=== PATIENT | male | born 1950 | race Caucasian/White ===

== ENCOUNTER 2021-01-18 12:41 | Inpatient (IN) | payer MEDICARE ==
[2021-01-18] VITALS (14 sets, daily range): BP systolic 132–155; BP diastolic 63–104; PULSE 78–99; TEMP 98.1–98.4
[~2021-01-18] VITALS: Ht 172.7 cm; Wt 84.2 kg
[2021-01-18] MEDS ORDERED: TOPROL XL 50MG50 MG PO (13:12)
[2021-01-18] MEDS ORDERED: NORVASC 5MG5 MG/TAB PO (13:12)
[2021-01-18] MEDS ORDERED: HYZAAR 25 MG-101 TAB PO (13:13)
[2021-01-18] MEDS ORDERED: GLUCOPHAGE500 MG/TAB PO (13:14)
[2021-01-18] MEDS ORDERED: ONE-A-DAY ESSE1 EACH PO (13:15)
[2021-01-18] MEDS ORDERED: GLUCOTROL 5M5 MG/TAB PO (13:15)
[2021-01-18] MEDS ORDERED: K-TAB20 PO (13:16)
[2021-01-18] MEDS ORDERED: LIPITOR 40MG TA40 MG PO (13:16)
[2021-01-18] MEDS ORDERED: ASPIRIN 81M81 MG/TA2 PO (13:17)
[2021-01-18] MEDS ORDERED: GLUCOPHAGE XR500 M1 PO (13:18)
--- NOTE | 2021-01-18 14:15 | NUR ---
Patient arrived to floor at about 1245. Patient is alert mostly. He kept saying it ws November. His speech is slurred and it hard to communicate with him. He denies pain and nausea. Attempted to discuss his home medications. He was not sure when he took them last. He thought there was another medication he takes but can not remember the name of it. He stated he has only been taking the diabetes medications. Oriented patient to room. Assisted him to the bathroom, he was able to void without issues. Urine is hazy and pale yellow. INT to right forearm. Patient will be going for a catheter procedure. He is going to sign consent afte he talks to Dr Marshall. No other changes at this time. Admission assessments completed.
[2021-01-18 15:18] LABS: BASO # 0.1 (0.0-0.2); EOS # 0.4 (0.0-0.7); EOS % 3.2 % (0-4.0); GRAN # 7.3 (1.4-6.5); GRAN % 54.2 % (42.2-75.2); HEMATOCRIT 40.9 % (42.0-52.0); HEMOGLOBIN 13.9 g/dl (13.5-18.0); LYMPH # 4.8 (1.2-3.4); LYMPH % 35.5 % (20.0-51.0); MEAN CELL VOLUME 85 fl (80.0-100.0); MEAN CORPUSCULAR HEMOGLOBIN 29 pg (27.0-31.0); MEAN CORPUSCULAR HGB CONC 34 g/dl (33.0-37.0); MEAN PLATELET VOLUME 9.9 fl (7.4-10.4); MONO # 0.8 (0.1-0.6); MONO % 5.7 % (1.7-9.3); PLATELET COUNT 247 K/mm3 (130-400); RED BLOOD COUNT 4.83 M/mm3 (4.20-5.60)
--- NOTE | 2021-01-18 15:28 | NUR ---
SEE MERGE DOCUMENTATION FOR MEDICATION ADMINISTRATION AND INTRA/POST PROCEUDRE SEDATION ASSESSMENTS.
[2021-01-18 15:29] LABS: ALBUMIN 4.3 gm/dL (3.5-5.0); BILIRUBIN,TOTAL 2.8 mg/dL (0.0-1.0); CREATININE, serum 0.99 (0.66-1.25); POTASSIUM 3.6 mmol/L (3.4-5.0); TOTAL PROTEIN 7.4 gm/dL (6.4-8.2)
[2021-01-18 15:32] LABS: LACTIC ACID 1.6 mmol/L (0.4-2.0)
[2021-01-18 15:34] LABS: INR 1.2 (0.8-3.0); PROTHROMBIN TIME 12.9 SECONDS (9.7-12.8)
[2021-01-18 16:14] LABS: TROPONIN-I 0.053 ng/mL (0.000-0.035)
[2021-01-18 16:21] LABS: HEMOGLOBIN A1C 7.5 %
--- NOTE | 2021-01-18 16:54 | NUR ---
LEFT HEART CATH ORDERED FOR PATIENT AT 1350. THIS RN WENT UP TO MEDICAL UNIT TO ASSESS PATIENT AND PREP FOR PROCEDURE. UPON ASSESSMENT, NOTED THAT PATIENT WAS SLURRING SPEECH, HAD ALTERED MENTAL STATUS, AND UNSTEADY GAIT WHILE AMBULATING TO BATHROOM. RN WAS CONCERNED ABOUT STROKE. EMELIA WALLACE NOTIFIED ABOUT PATIENT'S NEURO AND CLINICAL STATUS. RN WAS ASSISTED BY COWORKER RICKEY OWEN IN PREPARING THE PATIENT FOR PROCEDURE. RICKEY OWEN PERFORMED NEURO ASSESSMENT AND WAS ALSO CONCERNED ABOUT STROKE. EMELIA WALLACE CAME TO PATIENT'S ROOM 315 TO ASSESS SITUATION. EMELIA WALLACE COMMUNICATED WITH CHI WALLACE THAT MRI SHOULD BE ORDERED, BUT PROPOSED THAT THE LEFT HEART CATH SHOULD PRECEED THE MRI. CHI WALLACE AGREED. BEFORE MOVING THE PATIENT TO THE PROCEDURE, RN ASKED CHI WALLACE IF HE WOULD LIKE TO ASSESS THE PATIENT, MD DECLINED. 1445 PATIENT WAS TAKEN TO LEFT HEART CATH PROCEDURE, RIGHT GROIN ACCESS. REPORT WAS CALLED TO FLOOR RN, JLUIAN. POST PROCEDURE, PATIENT WAS TRANSPORTED BY TAILOR GARMENT FITTER STAFF TO MRI PROCEDURE WITH HANDOFF REPORT.
--- NOTE | 2021-01-18 17:03 | NUR ---
Patient is back in room from MRI. He is confused and keeps trying to get up. Dr Sanches is in the room with patient. Patient does not understand he needs to lay flat for 4 hours. Groin site from heart cath is soft, dressing is C/D/I. No bruising or hematoma notied. Dr Sanches is seeing patient at this time. Dr Leigh is also here to see patient. Dr Sanches notified the daughter that the patient did have a stroke. Explained to the daughter that he had a heart cath as well for the LA. Patient tried talking to his daughter but is not able to have a conversation. Bed alarm on. Having a LOGISTICS SYSTEM ENGINEER sit with patient as 1:1 for the 4 hour flat time. No other changes at this time. Call light within reach.
--- NOTE | 2021-01-18 17:41 | NUR ---
Patient continues to be confused. We continue to have the OPERATIONAL RISK CONSULTANT with him. Femoral site continues to be soft, no drange to gauze, no hematoma. No other changes at this time. Call light within reach. Bed alarm on.
--- NOTE | 2021-01-18 18:07 | NUR ---
Patient is alert and partially oriented. He is speaking more clearly but is still not making sense. Denies pain and nausea. There was small amount of drainage to groin site, placed manual pressure to site for 5mins, bleeding has stopped. Groin remains soft, no hematoma noted. Patient needs a dysphaigia screen but can not do at this time since patient can not sit up. No other changes at this time. Call light within reach. Bed alarm on.
--- NOTE | 2021-01-18 18:45 | NUR ---
Patients groin site is soft, no increased bleeding. Patient continues to be confused. No other changes at this time. Call light within reach. Bed alarm on. CLASS 1 OWNER OPERATOR at bedside.
--- NOTE | 2021-01-18 23:58 | NUR ---
Patient laying in bed, sitter at bedside, alert, oriented to self, garbled speech, impulsive, hard to redirect at times with flat precautions, call weathers w/i reach, dressing to R groin site with slight amount of bloody drainage, no active bleeding observed, soft to touch, pulses WNL to bilateral pedal, updated daughter on the phone, Will continue to monitor.
[2021-01-19] VITALS (8 sets, daily range): BP systolic 129–159; BP diastolic 78–91; PULSE 85–88; TEMP 97.7–98.9
--- NOTE | 2021-01-19 03:29 | NUR ---
Resting comfortably, no c/o at this time, groin remains with scant drainage and soft to touch, patient remains confused, wakes easily, VS stable.
[2021-01-19 10:26] LABS: BASO # 0.1 (0.0-0.2); BASO % 0.8 % (0.0-2.0); EOS # 0.4 (0.0-0.7); EOS % 2.9 % (0-4.0); GRAN # 7.7 (1.4-6.5); GRAN % 63.6 % (42.2-75.2); HEMATOCRIT 42.1 % (42.0-52.0); HEMOGLOBIN 14.5 g/dl (13.5-18.0); LYMPH # 3.3 (1.2-3.4); LYMPH % 26.8 % (20.0-51.0); MEAN CELL VOLUME 85 fl (80.0-100.0); MEAN CORPUSCULAR HEMOGLOBIN 29 pg (27.0-31.0); MEAN CORPUSCULAR HGB CONC 34 g/dl (33.0-37.0); MEAN PLATELET VOLUME 9.8 fl (7.4-10.4); MONO # 0.7 (0.1-0.6); MONO % 5.7 % (1.7-9.3); PLATELET COUNT 241 K/mm3 (130-400); RED BLOOD COUNT 4.98 M/mm3 (4.20-5.60); REDCELL DISTRIBUTION WIDTH-CV 14.1 % (11.5-14.5)
[2021-01-19 10:35] LABS: CALCIUM 9.2 mg/dL (8.4-10.2); CREATININE, serum 1.02 (0.66-1.25); POTASSIUM 3.7 mmol/L (3.4-5.0)
--- NOTE | 2021-01-19 11:00 | NUR ---
Assessment completed, alert/oriented but reporst feeling "foggy" about the whole situation, denies pain, his speech is still thick/ slurred, othewise no other neuro deficits noted on my assessment, I have not observed the patient ambulating but there was some unsteady gait issues reported to my by night nurse, heart RRR/ SR on tele , lungs CTA/ no resp.difficulty noted, he is sitting up eaitng breafast/ no signs of swallowing difficulty, normal faical and tounge movment noted, I discussed plan of care with him, insturcted to use call light for assistance/ bed alarm is set, he verablizes understanding of teaching
--- NOTE | 2021-01-19 11:42 | NUR ---
SW met with patient in room. Patient reports that he resides in [place] independently. Patient reports he has a DTR in [place].Patient reports that is PCP is Dr. Nascimento in , and uses a cane prn. Patient reports that family will transport home. Patient denies any other DME use or need. Patient denies any additonal nursing support. No additional needs identified.
--- NOTE | 2021-01-19 19:42 | NUR ---
Awake, alert, oriented to self, place, redirected easily at this time, denies pain, site to R groin with dressing intact, soft to touch.
--- NOTE | 2021-01-19 22:17 | NUR ---
Awake, alert, oriented x 3, verbal with slurred speech but able to make needs known, following conversation well and able to appropraitely answer questions, sitting up in bed, call weathers w/i reach, respirations even and unlabored, skin warm and dry, verbalizes importance of taking his prescribed medications as ordered.
[2021-01-20 00:39] VITALS: BP 170/88; PULSE 93; TEMP 98.9
[2021-01-20 04:16] VITALS: BP 139/87; PULSE 90; TEMP 98.3
[2021-01-20 06:40] LABS: BASO # 0.1 (0.0-0.2); BASO % 0.7 % (0.0-2.0); EOS # 0.5 (0.0-0.7); EOS % 3.4 % (0-4.0); GRAN # 9.1 (1.4-6.5); GRAN % 63.9 % (42.2-75.2); HEMATOCRIT 39.5 % (42.0-52.0); HEMOGLOBIN 13.7 g/dl (13.5-18.0); LYMPH # 3.6 (1.2-3.4); LYMPH % 24.9 % (20.0-51.0); MEAN CELL VOLUME 84 fl (80.0-100.0); MEAN CORPUSCULAR HEMOGLOBIN 29 pg (27.0-31.0); MEAN CORPUSCULAR HGB CONC 35 g/dl (33.0-37.0); MONO % 6.8 % (1.7-9.3); PLATELET COUNT 216 K/mm3 (130-400); RED BLOOD COUNT 4.68 M/mm3 (4.20-5.60)
[2021-01-20 06:49] LABS: ALBUMIN 3.6 gm/dL (3.5-5.0); BILIRUBIN,TOTAL 2.6 mg/dL (0.0-1.0); CALCIUM 8.8 mg/dL (8.4-10.2); CREATININE, serum 0.89 (0.66-1.25); POTASSIUM 3.5 mmol/L (3.4-5.0); TOTAL PROTEIN 6.5 gm/dL (6.4-8.2)
[2021-01-20 07:47] VITALS: BP 126/88; PULSE 89; TEMP 97.5
--- NOTE | 2021-01-20 09:10 | NUR ---
Assessment completed, alert/oriented, vital signs stable, denies pain, still noting some thick/ slurred speech, no other neuro deficits noted, heart RRR, distal pulses are palapble, lungs CTA/ no resp.difficutly noted, WBC 14.3 and hospitalist notified / he has been afebrile/ cultures and labs requested from [facility], he is eating and drinking without difficulty, fsbs runnning high/ treating with insulin as ordered and being adjusted by hospitalist, he denies needs
[2021-01-20 10:11] LABS: COLLECTION METHOD CLEAN CATCH
[2021-01-20 10:25] LABS: MUCOUS Present /lpf; PH 6 (5-8); SQUAMOUS EPITHELIAL None Seen /hpf; URINE APPEARANCE Clear; URINE BACTERIA None Seen /hpf; URINE BILIRUBIN Negative (NEGATIVE); URINE BLOOD Negative (NEGATIVE); URINE COLOR Yellow; URINE GLUCOSE 3+ (NEGATIVE); URINE KETONE Trace (NEGATIVE); URINE LEUKOCYTE ESTERASE Negative (NEGATIVE); URINE NITRATE Negative (NEGATIVE); URINE PROTEIN(semi-quant) 1+ (NEGATIVE); URINE RBC 0-2 /hpf; URINE UROBILINOGEN Negative (NEGATIVE)
[2021-01-20 11:19] VITALS: BP 103/74; PULSE 94; TEMP 98.9
[2021-01-20 14:14] LABS: MAGNESIUM 1.9 mg/dL (1.6-2.3)
[2021-01-20 14:46] LABS: TSH w REFLEX 2.12 uIU/mL (0.465-4.680)
[2021-01-20 16:10] VITALS: BP 133/76; PULSE 86; TEMP 98.3
--- NOTE | 2021-01-20 19:05 | NUR ---
Attempting to get out of bed unassisted, bed alarm in use, redirected patient, intermittent confusion noted, slurred speech noted, no s/s of hypo/hyper glycemia, call weathers w/i reach,
[2021-01-20 19:56] VITALS: BP 127/87; PULSE 85; TEMP 98.3
[2021-01-21 00:04] VITALS: BP 136/84; PULSE 83; TEMP 97.3
[2021-01-21 04:49] VITALS: BP 139/94; PULSE 80; TEMP 97.3
[2021-01-21 06:27] LABS: BASO # 0.1 (0.0-0.2); BASO % 0.9 % (0.0-2.0); EOS # 0.5 (0.0-0.7); EOS % 3.8 % (0-4.0); GRAN # 7.1 (1.4-6.5); GRAN % 60.1 % (42.2-75.2); HEMATOCRIT 38.1 % (42.0-52.0); HEMOGLOBIN 12.9 g/dl (13.5-18.0); LYMPH # 3.4 (1.2-3.4); LYMPH % 28.2 % (20.0-51.0); MEAN CELL VOLUME 85 fl (80.0-100.0); MEAN CORPUSCULAR HEMOGLOBIN 29 pg (27.0-31.0); MEAN CORPUSCULAR HGB CONC 34 g/dl (33.0-37.0); MEAN PLATELET VOLUME 10.2 fl (7.4-10.4); MONO # 0.8 (0.1-0.6); MONO % 6.7 % (1.7-9.3); PLATELET COUNT 208 K/mm3 (130-400); RED BLOOD COUNT 4.48 M/mm3 (4.20-5.60); REDCELL DISTRIBUTION WIDTH-CV 13.9 % (11.5-14.5)
[2021-01-21 06:38] LABS: ALBUMIN 3.6 gm/dL (3.5-5.0); BILIRUBIN,TOTAL 2.8 mg/dL (0.0-1.0); CALCIUM 8.5 mg/dL (8.4-10.2); CREATININE, serum 1.02 (0.66-1.25); POTASSIUM 3.3 mmol/L (3.4-5.0); TOTAL PROTEIN 6.4 gm/dL (6.4-8.2)
--- NOTE | 2021-01-21 07:10 | NUR ---
Report with BRAYDEN Díaz. Pt resting in bed with eyes closed, resp even and unlabored.
--- NOTE | 2021-01-21 08:40 | NUR ---
Assessment complete. Pt resting in bed, A&O x 3 with slurred speech and occasional forgetfulness. Pt denies pain at this time. Saline lock IV to right forearm without s/s of complications. Physical assessment otherwise unremarkable. No further needs reported. Call light in reach.
[2021-01-21 08:50] VITALS: BP 138/87; PULSE 80; TEMP 97.6
[2021-01-21 12:16] VITALS: BP 135/69; PULSE 80; TEMP 98.6
--- NOTE | 2021-01-21 12:25 | NUR ---
Pt to IMCU 16 for procedure via WC accompanied by LINK TRAINER MECHANIC.
--- NOTE | 2021-01-21 14:10 | NUR ---
Pt back to following procedure via WC accompanied by BRAYDEN Burger. Pt awake, drowsy, requesting food and drink. No further needs reported. Call light in reach.
--- NOTE | 2021-01-21 16:27 | NUR ---
Niru, IPR Director, notified JING that she was consulted on the patient. JING met with the patient. He is agreeable to IPR. SW notified Niru. Niru has submitted auth to the patient's insurance. Awaiting to hear from insurance. JING contacted and updated the patient's daughter, Vero. Vero is in agreement to IPR.
[2021-01-21 16:52] VITALS: BP 133/76; PULSE 78; TEMP 98.5
--- NOTE | 2021-01-21 17:40 | NUR ---
Pt sitting up in bed, eating dinner, denies pain or needs at this time. Sched medications administered per orders. Call light in reach. Bed alarm on.
--- NOTE | 2021-01-21 19:07 | NUR ---
Report to BRAYDEN Salvador.
[2021-01-21 19:31] VITALS: BP 106/67; PULSE 79; TEMP 98.1
--- NOTE | 2021-01-21 20:00 | NUR ---
PATIENT WAS RECEIVED IN BED FAIR,BREATHING ON RA.DUE MEDS GIVEN ASSESSMENT DONE.DENIES PAIN.NO OTHER NEEDS AT THIS TIME.
[2021-01-22] VITALS (12 sets, daily range): BP systolic 67–129; BP diastolic 48–79; PULSE 66–80; TEMP 96.6–98
--- NOTE | 2021-01-22 05:09 | NUR ---
PATIENT HAD A RESTFUL NIGHT,DENIES PAIN,ON RA.NO NEEDS AT THIS TIME
--- NOTE | 2021-01-22 07:00 | NUR ---
Pt. resting in bed. Assessment as charted. Telemetry on, HR reg. Rt. groin dressing CDI. CMS checks to BLE WNL. Pt denies c/o pain. Pt incontinent of large amt of urine. Bath given, assisted pt up to brush teeth then to chair. Tolerates activity well with one assist. INT to rt wrist in tech with no redness.
--- NOTE | 2021-01-22 07:04 | NUR ---
PATIENT CURRENTLY RESTING IN BED. PATIENT DOES NOT C/O PAIN AT THIS TIME. DENIES ANY FURTHER NEEDS AT THIS TIME. BED IN LOWEST POSITION. BED ALARM ON. CALL LIGHT WITHIN REACH. WILL CONTINUE TO MONITOR.
[2021-01-22 08:40] LABS: BASO # 0.1 (0.0-0.2); BASO % 0.8 % (0.0-2.0); EOS # 0.4 (0.0-0.7); EOS % 3.4 % (0-4.0); GRAN # 7.9 (1.4-6.5); GRAN % 61.5 % (42.2-75.2); HEMATOCRIT 40.8 % (42.0-52.0); HEMOGLOBIN 14.3 g/dl (13.5-18.0); LYMPH # 3.6 (1.2-3.4); LYMPH % 28.4 % (20.0-51.0); MEAN CELL VOLUME 83 fl (80.0-100.0); MEAN CORPUSCULAR HEMOGLOBIN 29 pg (27.0-31.0); MEAN CORPUSCULAR HGB CONC 35 g/dl (33.0-37.0); MEAN PLATELET VOLUME 9.9 fl (7.4-10.4); MONO # 0.7 (0.1-0.6); MONO % 5.7 % (1.7-9.3); PLATELET COUNT 256 K/mm3 (130-400); RED BLOOD COUNT 4.94 M/mm3 (4.20-5.60)
[2021-01-22 08:51] LABS: CALCIUM 8.8 mg/dL (8.4-10.2); CREATININE, serum 0.97 (0.66-1.25); POTASSIUM 3.8 mmol/L (3.4-5.0)
--- NOTE | 2021-01-22 09:10 | NUR ---
Pt sitting up in chair, working with speech therapy. Pt reports "dizzy" and requested to return to bed. VS: BP 76/62, O2 98 on RA, pulse 68, temp 97.5 reported to nurse. BP rechecked manually 72/48 and Blood glucose 331.
--- NOTE | 2021-01-22 10:00 | NUR ---
Pt in chair. BP monitored q 15 min. see flow sheet. Pt. alert and responsive.
--- NOTE | 2021-01-22 13:25 | NUR ---
Niru, IPR Director, reports that she got approval from the patient's insurance and is able to take the patient today. SW contacted and updated the patient's daughter, Vero. She is agreeable to the d/c plan. The patient is to discharge today, 01/22, to [facility]. No additional needs at this time.
[2021-01-22] MEDS ORDERED: COREG12.5 MG PO (13:37)
[2021-01-22] MEDS ORDERED: ELIQUIS 5MG PO (13:37)
[2021-01-22] MEDS ORDERED: ENTRESTO 24 MG1 EACH PO (13:38)
[2021-01-22] MEDS ORDERED: NOVLOG SQ (13:40)
[2021-01-22] MEDS ORDERED: ALDACTONE 25MG25 M1 PO (13:41)
--- NOTE | 2021-01-22 15:31 | NUR ---
PATIENT CURRENTLY RESTING IN BED WATCHING TV. PATIENT DENIES ANY PAIN. PATIENT DOES STATES THAT HE DOES NOT HAVE ANY NEEDS AT THIS TIME. TELE D/C. WILL BE MOVING TO [facility]. BED IN LOWEST POSITION. BED ALARM ON. CALL LIGHT WITHIN REACH.
--- NOTE | 2021-01-22 15:47 | NUR ---
REPORT GIVEN TO BRAYDEN KENNEDY.
== END 2021-01-22 15:48 | DRG 64 ==
LOC: MEDICAL 12:41
PROVIDERS: Physician Assistant; ADMIT Hospitalist
PROC: 4A023N7 Measurement of Cardiac Sampling and Pressure, Left Heart, Percutaneous Approach (ICD-10-PCS; principal; 2021-01-18)
PROC: B2111ZZ Fluoroscopy of Multiple Coronary Arteries using Low Osmolar Contrast (ICD-10-PCS; 2021-01-18)
DX: I63.9 Cerebral infarction, unspecified (principal); I50.21 Acute systolic (congestive) heart failure; I42.8 Other cardiomyopathies; N39.0 Urinary tract infection, site not specified; K86.2 Cyst of pancreas; R47.1 Dysarthria and anarthria; I48.0 Paroxysmal atrial fibrillation; I95.9 Hypotension, unspecified; K76.0 Fatty (change of) liver, not elsewhere classified; I11.0 Hypertensive heart disease with heart failure; E78.5 Hyperlipidemia, unspecified; K21.9 Gastro-esophageal reflux disease without esophagitis; E11.40 Type 2 diabetes mellitus with diabetic neuropathy, unspecified; R77.8 Other specified abnormalities of plasma proteins; L98.8 Other specified disorders of the skin and subcutaneous tissue; N28.1 Cyst of kidney, acquired; E80.4 Gilbert syndrome; Z79.84 Long term (current) use of oral hypoglycemic drugs; Z79.82 Long term (current) use of aspirin; Z88.0 Allergy status to penicillin
CPT/HCPCS: 99223-AI; 99232-AI; 99239; C1760; C1894; J0696; J1644; J1650; J1815; J1940; J3010; J7040; Q9967

== ENCOUNTER 2021-01-22 13:44 | Inpatient (IN) | payer MEDICARE ==
[~2021-01-22] VITALS: Ht 172.7 cm; Wt 86.0 kg
[~2021-01-22 13:44] MED LIST: ALDACTONE 25MG25 M1 PO; ASPIRIN 81M81 MG/TA2 PO; COREG12.5 MG PO; ELIQUIS 5MG PO; ENTRESTO 24 MG1 EACH PO; GLUCOPHAGE XR500 M1 PO; GLUCOPHAGE500 MG/TAB PO; GLUCOTROL 5M5 MG/TAB PO; HYZAAR 25 MG-101 TAB PO; K-TAB20 PO; LIPITOR 40MG TA40 MG PO; NORVASC 5MG5 MG/TAB PO; NOVLOG SQ; ONE-A-DAY ESSE1 EACH PO; TOPROL XL 50MG50 MG PO
--- NOTE | 2021-01-22 14:15 | NUR ---
Patient arrived to [facility] at 4:15 pm today. Received report from BRAYDEN Lopez at [facility]. Patient is on an ADA diet; VTE is Eliquis; patient was on tele and has been in sinus rhythem so this was removed upon arrival to [facility]; Patient is on ACHS accuchecks an on High SSI; Has an INT to his RFA; takes pills whole with water; He is a one assist with a walker; has an allergy to pcn; last BM was 01/22/21 per nurse; He is on Room Air. Patients standing scale weight is 84.6 kg. Patient currently resting in recliner, call light in reach and alarm set.
[2021-01-22 18:08] VITALS: BP 135/73; PULSE 76; TEMP 99.6
--- NOTE | 2021-01-22 20:48 | NUR ---
Patient currently resting in bed, call light in reach and bed alarm set. Patient tolerated diet well this evening. Yvon had requested to see the clinical social work therapist tomorrow and this was communicated to the night nurse regarding his insurance. Reported off to night nurse.
[2021-01-22 22:01] VITALS: BP 129/80
[2021-01-23 05:11] VITALS: BP 131/86; PULSE 78; TEMP 97.8
--- NOTE | 2021-01-23 07:31 | NUR ---
CHANGE OF SHIFT REPORT GIVEN TO DAY SHIFT NURSEDEB.
--- NOTE | 2021-01-23 09:29 | NUR ---
PT RESTING IN BED AT BEDSIDE SHIFT REPORT. DENIES ANY PAIN THIS AM IS JUST ANXIOUS TO GET HOME.
--- NOTE | 2021-01-23 15:51 | NUR ---
Cotton Farmworker met with patient to complete initial intake as patient is new to [facility]. SW also reviewed and provided a copy of team conference notes. Patient lives alone in [place] and sees Dr. Cloud for primary care. Patient obtains his medications at [facility] and uses a cane as needed. Patient has no other DME. JING advised patient tentative discharge date is , 01/31/21 and patient states he does not want to stay any longer than that. SW also advised patient that recommendation is for outpatient therapy at discharge. Patient states he plans to return home to [place] but that his daughter, Vero (ph#[phone]) lives in [place] and wants him to stay with her at discharge. SW discussed scheduling a family meeting and patient advised Vero would be here tomorrow. SW contacted Vero who advised she would be here tomorrow and a 1300 meeting would work for her. JING provided date/time to Niru [facility] Director.
[2021-01-23 17:57] VITALS: BP 111/68; PULSE 73; TEMP 98
--- NOTE | 2021-01-23 18:18 | NUR ---
PT HAS DENIED PAIN TODAY, IS 1 ASSIST WITH JUST GAITBELT FOR AMBULATION.
--- NOTE | 2021-01-23 19:20 | NUR ---
RECEIVED CHANGE OF SHIFT REPORT FROM DAY SHIFT NURSE.
--- NOTE | 2021-01-23 20:00 | NUR ---
OBSERVED SPEECH CLEAR AND APPROPRIATE AT THIS TIME. OBSERVED NO FACIAL DROOPING AT THIS TIME. SWALLOWS MEDS WITH NO REPORTED PROBLEMS. BED ALARM ON WHILE IN BED. DENIES ANY NEEDS/CHEST PAIN/SOA. DENIES NUMBNESS/TINGLING TO EXTREMITIES AT THIS TIME.
[2021-01-23 21:39] VITALS: BP 127/71
[2021-01-24 05:37] VITALS: BP 120/69; PULSE 72; TEMP 97.8
[2021-01-24 08:44] VITALS: BP 110/67
--- NOTE | 2021-01-24 09:59 | NUR ---
Patient resting in bed, call light in reach and bed alarm is set. Patient tolerating diet well. Attended his moring ST session. Denies questions at this time.
--- NOTE | 2021-01-24 13:52 | NUR ---
Primary Teacher participated in patient/family conference. Patient's daughter, Vero is at bedside and JOSE MIGUEL Marrufo opened the meeting by explaining it's purpose. PT/OT/ST reviewed patient's progress and recommendations which are for outpatient PT/OT/ST, grab bars, and a shower seat. Patient and Vero advised they plan is for patient to discharge to Vero's home in [place]. Discharge date of 01/31/21 was reviewed. SW will continue to follow.
[2021-01-24 16:09] VITALS: BP 131/77; PULSE 72; TEMP 97.9
--- NOTE | 2021-01-24 20:36 | NUR ---
Patient attended all his therapies this shift. Patient was A&Ox4 today, but can be forgetful at times. He continues on eliquis for VTE. He transfers with gaitbelt. Patient tolerating diet well this shift. Denied pain or questions. His daughter stopped by to visit this shift. Reported off to night nurse.
--- NOTE | 2021-01-24 21:30 | NUR ---
PT ASLEEP AT THIS NURSE'S ENTRANCE. WAKES BUT VERY DROWSY/ DENIES PAIN OR CONCERNS AT THIS TIME. USING URINAL. NO DIFFICULTY VOIDING. KEEP HAT OVER EYES. NO NEEDS. CALL LIGHT IN REACH. BED ALARM SET.
[2021-01-25 06:01] VITALS: BP 138/73; PULSE 70; TEMP 97.8
--- NOTE | 2021-01-25 14:23 | NUR ---
Admission QIM scores were reviewed by the team. Code of 4 chosen for toilet hygiene was determined by team discussion to be the most usual performance for this patient during the assessment period. Code of 3 chosen for toileting transfers was determined by team discussion to be the most usual performance for this patient during the assessment period. Code of 6 chosen for rolling left to right was determined by team discussion to be the most usual performance for this patient during the assessment period. Code of 3 chosen for walk 150 feet was determined by team discussion to be the most usual performance for this patient during the assessment period.--Niru Martinez, PD
--- NOTE | 2021-01-25 15:24 | NUR ---
Bilingual Teacher Assistant followed up with patient before the weekend. Patient advised he does not have much energy today. Patient does not have any questions or concerns at this time.
[2021-01-25 16:09] VITALS: BP 118/72; PULSE 78; TEMP 98.6
--- NOTE | 2021-01-25 19:33 | NUR ---
PATIENT HAD UNEVENTFUL SHIFT. PATIENT DENIED PAIN THROUGHOUT THE DAY. PATIENT CURRENTLY RESTING IN BED. CALL LIGHT IN REACH. BED ALARM ON. REPORT GIVEN TO BRAYDEN ORLANDO.
--- NOTE | 2021-01-25 20:00 | NUR ---
PT RESTING IN BED. HAT OVER EYES. TIRED. TOOK HS PILLS W/O DIFFICULTY. DENIES PAIN. NO NEEDS AT THIS TIME. CALL LIGHT IN REACH. BED ALARM SET
[2021-01-26 05:33] VITALS: BP 113/62; PULSE 71; TEMP 98.5
[2021-01-26 07:39] VITALS: BP 110/80
--- NOTE | 2021-01-26 08:14 | NUR ---
PT RESTING IN BED AT BEDSIDE SHIFT REPORT. PT DENIES ANY PAIN OR CONCERNS THIS AM.
[2021-01-26 16:28] VITALS: BP 123/66; PULSE 70; TEMP 98.2
--- NOTE | 2021-01-26 17:53 | NUR ---
PT DENIED PAIN THIS SHIFT AND REPORTED NO OTHER COMPLAINTS. DID DISCUSS WITH PT GIVING HIMSELF HIS INSULIN AND HOW HE IS NOT COMFORTABLE WITH THIS. THIS NURSE ATTEMPTED EDUCATION. PT WAS RELUCTANT AND QUESTIONED WETHER HE'D GO HOME WITH INSULIN. THIS NURSE TOLD HIM WE WOULD CHECK WITH DR. DENT THURSDAY TO SEE WETHER WE NEED TO CONTINUE EDUCATION PRIOR TO DISCHARGE ON THURSDAY.
--- NOTE | 2021-01-26 20:00 | NUR ---
ASSISTGED PT TO BR W/SBA. SLOW STEADY GAIT. VOIDS W/O DIFFICULTY. BILAT FLOTATION TENDER HELPER STRONG. DENIES PAIN. BACK TO BED. DENIES NEEDS AT THIS TIME. CALL LIGHT IN REACH.
[2021-01-27 05:39] VITALS: BP 122/75; PULSE 67; TEMP 98.3
--- NOTE | 2021-01-27 11:24 | NUR ---
PT SLEEPING IN BED AT BEDSIDE SHIFT REPORT. DENIED PAIN THIS AM. HAS BEEN REMINDED TO USE CALL LIGHT FOR RESTROOM BUT CONTINUES TO GO ON HIS OWN, WHEN BED ALARM IS SET. PT DID HAVE ONE EPISODE OF INCONTINENCE WHEN HE DID NOT MAKE IT TO THE BATHROOM IN TIME. NO OTHER COMPLAINTS.
[2021-01-27 16:00] VITALS: BP 108/83; PULSE 71; TEMP 98.2
--- NOTE | 2021-01-27 17:41 | NUR ---
PT HAD INCONTINENT EPISODE, HE DIDN'T GET TO BATHROOM IN TIME. PT'S CLOTHING NEEDED CHANGED, ALL CLOTHES WASHED TODAY. PT SAFETY AWARENESS IS NOT INTACT, WALKS VERY FAST AND IS UNSTEADY ON HIS FEET.
--- NOTE | 2021-01-27 20:00 | NUR ---
PT RESTING IN BED. PT SLOW SPEECH. SLURRED AT TIMES BUT VERY UNDERSTANABLE, TEST ARCHITECT EQUAL BILAT. NO VISUAL DEFECTS. DENEIS NEEDS THIS EVENING. CALL LIGHT IN REACH. BED ALARM SET.
[2021-01-28 05:57] VITALS: BP 123/78; PULSE 88; TEMP 98.2
--- NOTE | 2021-01-28 13:14 | NUR ---
Patient resting in bed, call light in reach and bed alarm set. Patient attended all therapies this morning. He was independent with brushing his teeth this morning. He transfers via gait belt and is unsteady at times. He was touch assist this morning with ambulating to the toilet and to the sink. Patient in pleasent mood this shift. Will continue to monitor.
[2021-01-28 16:02] VITALS: BP 115/69; PULSE 67; TEMP 97.5
--- NOTE | 2021-01-28 16:51 | NUR ---
Concrete Block Mason attempted to follow up with patient, but patient was sleeping. SW contacted patient's daughter, Sanjuanita to review discharge date of , 01/31/21. Sanjuanita states she can make this work and will get a mobile application engineer for her children. Sanjuanita is still unsure of where to set up outpatient PT/OT but requests SW follow up with her tomorrow. JING updated patient's RN, Macrina.
--- NOTE | 2021-01-28 19:58 | NUR ---
RECEIVED CHANGE OF SHIFT REPORT FROM DAY SHIFT NURSE. BED ALARM ON.
--- NOTE | 2021-01-28 20:00 | NUR ---
PATIENT DENIES CHEST PAIN/SOA/NAUSEA. DENIES NUMBNESS/TINGLING TO EXTREMITIES AT THIS TIME. DENIES ANY NEEDS AT THIS TIME. BED ALARM ON WHILE IN BED.
--- NOTE | 2021-01-28 20:33 | NUR ---
Patient attended all therapies today. Patient told this nurse that he had heard during his family meeting that he would be discharged on Thursday, so was confused when he found out that he would be leaving on . This nurse spoke with SW and she clarified that patient would be discharging on and that his daughter would be able to pick him up. This was communicated to patient and he voiced understanding. Patient currently resting in bed, call light in reach and bed alarm is set.
[2021-01-28 20:41] VITALS: BP 130/82
[2021-01-29 06:05] VITALS: BP 128/68; PULSE 72; TEMP 97.8
--- NOTE | 2021-01-29 07:28 | NUR ---
CHANGE OF SHIFT REPORT GIVEN TO DAY SHIFT NURSE, DEB OWEN.
--- NOTE | 2021-01-29 09:55 | NUR ---
PT RESTING IN BED AT BEDSIDE SHIFT REPORT. PT DENIED PAIN THIS AM. STATED HE HAD BEEN UPSET LAST NIGHT BECAUSE HE HAD ASKED THE PRIVATE BRANCH EXCHANGE REPAIRER TO CLOSE HIS DOOR AND SHE HAD REFUSED SAYING SHE'D BE BACK SOON AND DIDN'T WANT TO REOPEN IT.
[2021-01-29 16:19] VITALS: BP 124/67; PULSE 69; TEMP 98.5
--- NOTE | 2021-01-29 19:19 | NUR ---
RECEIVED CHANGE OF SHIFT REPORT FROM DAY SHIFT NURSE.
[2021-01-29 20:49] VITALS: BP 124/84
--- NOTE | 2021-01-29 20:50 | NUR ---
DENIES CHEST PAIN/SOA/NAUSEA AT THIS TIME. BED ALARM ON WHEN IN BED. DENIES ANY NEEDS OR COMPLAINTS AT THIS TIME. SPEECH CLEAR WITH NO WEAKNESS TO EITHER SIDE OF BODY/EXTREMITIES AT THIS TIME.
--- NOTE | 2021-01-29 22:32 | NUR ---
REFUSED OFFER OF HS SNACK WITH HS MEDS GIVEN.
--- NOTE | 2021-01-30 02:26 | NUR ---
PATIENT SLEEPING, DOES NOT WAKE WHEN DOOR TO ROOM IS OPENED BY STAFF, OBSERVING BREATHING NONLABORED AND EVEN. BED ALARM ON.
[2021-01-30 05:34] VITALS: BP 130/71; PULSE 83; TEMP 97.3
--- NOTE | 2021-01-30 07:22 | NUR ---
CHANGE OF SHIFT REPORT GIVEN TO DAY [facility] NURSE, JULIAN OWEN. BED ALARM ON WHILE IN BED.
--- NOTE | 2021-01-30 09:45 | NUR ---
Initial visit; Patient thanked Neurology Manager for looking in on him and offaering God's blessings and keeping him in Neurology Manager's prayers.
[2021-01-30 16:52] VITALS: BP 126/77; PULSE 72; TEMP 97.7
--- NOTE | 2021-01-30 17:04 | NUR ---
Marine Equipment Design Engineer contacted patient's daughter, Vero to review discharge plan. Vero will cotton picking machine operator patient tomorrow and advised [facility] would be closest to her home. SW met with patient to provide copy of team conference notes. Patient reports he is not happy about going to outpatient therapy. SW presented IM form and patient reviewed and signed. SW placed original in chart and provided copy to patient. JING contacted the therapy department at [facility] and left a message.
--- NOTE | 2021-01-30 18:57 | NUR ---
Patient did well today. He needs reminders to use the call when getting up in the room. No complaints of pain or nausea today. Voiding without issues. He did not have a bowel movement today. No other changes at this time. Call light within reach. Showered this afternoon with OT.
--- NOTE | 2021-01-30 20:30 | NUR ---
PT RESTING IN BED. VERY DROWSY. REMINDED PT TO USE CALL LIGHT WHEN NEEDING UP. PT AGREES. DENIES COMPLAINTS. CALL LIGHT IN REACH. BED ALARM SET.
--- NOTE | 2021-01-31 02:56 | NUR ---
PT SLEEPING WELL TONIGHT. NO DISTRESS.
[2021-01-31 05:32] VITALS: BP 123/75; PULSE 69; TEMP 97.7
--- NOTE | 2021-01-31 10:24 | NUR ---
Patient resting in bed, call light in reach and bed alarm set. Discussed discharge papers with patient.
--- NOTE | 2021-01-31 11:46 | NUR ---
Patient Health Summary, Discharge Summary, and Home Meds printed and reviewed with patient and daughter. Stressed importance of follow up appointments. Called prescriptions for Atorvastatin, Coreg, Entresto, Spironolactone in to pharmacy of choice. Belongings gathered by FRANDY/Bj including misc. personal items, phone and student worker. Patient currently waiting for his daughter to arrive to take him to her place. Patient currently resting in bed, call light in reach and bed alarm set. Will continue to monitor.
--- NOTE | 2021-01-31 13:00 | NUR ---
Patient was left via wheelchair with daughter at his side. Eva transported patient to daughter's car and was seatbelted for ride home. Patient denied any questions. Therapy appointment was added to patient's discharge paperwork.
--- NOTE | 2021-01-31 13:33 | NUR ---
Discharge QIM scores were reviewed by the team. Code of 6 chosen for toileting transfers was determined by team discussion to be the most usual performance for this patient during the assessment period. Code of 6 for chair/bed to chair transfers was determined by team discussion to be the most usual performance for this patient during the assessment period. Code of 4 chosen for walk 10 feet was determined by team discussion to be the most usual performance for this patient during the assessment period. Code of 4 chosen for walk 50 feet w/ 2 turns was determined by team discussion to be the most usual performance for this patient during the assessment period. Code of 4 chosen for walk 150 feet was determined by team discussion to be the most usual performance for this patient during the assessment period. Code of 4 chosen for walk 10 feet on uneven surface was determined by team discussion to be the most usual performance for this patient during the assessment period.--Niru Martinez,
--- NOTE | 2021-01-31 15:44 | NUR ---
Early Childhood Education Coordinator contacted Kika at [facility] and scheduled patient's first PT appointment for 02/04/21 @ 0945. Kika reports they will then follow up on OT and ST for patient. Kika requested an email address for patient's daughter, Vero so that she can email intake paperwork. JING contacted Vero and obtained email, [email or web address]. JING provided appointment to Vero who advised this would work for them. JING called Kika back and gave email. Patient discharged today with his daughter, Vero.
== END 2021-01-31 13:02 | disposition home or self-care (01) | DRG 56 ==
PROVIDERS: ADMIT Internal Medicine
DX: I69.354 Hemiplegia and hemiparesis following cerebral infarction affecting left non-dominant side (principal); I50.21 Acute systolic (congestive) heart failure; I42.9 Cardiomyopathy, unspecified; K86.2 Cyst of pancreas; N39.0 Urinary tract infection, site not specified; I11.0 Hypertensive heart disease with heart failure; I48.0 Paroxysmal atrial fibrillation; I69.322 Dysarthria following cerebral infarction; E11.40 Type 2 diabetes mellitus with diabetic neuropathy, unspecified; K76.0 Fatty (change of) liver, not elsewhere classified; E80.4 Gilbert syndrome; N28.1 Cyst of kidney, acquired; K21.9 Gastro-esophageal reflux disease without esophagitis; L98.8 Other specified disorders of the skin and subcutaneous tissue; E78.5 Hyperlipidemia, unspecified; R79.89 Other specified abnormal findings of blood chemistry; B96.1 Klebsiella pneumoniae [K. pneumoniae] as the cause of diseases classified elsewhere; Z79.82 Long term (current) use of aspirin; Z79.4 Long term (current) use of insulin; Z79.01 Long term (current) use of anticoagulants; Z96.642 Presence of left artificial hip joint; Z85.46 Personal history of malignant neoplasm of prostate; Z88.0 Allergy status to penicillin
CPT/HCPCS: 99222-AI; 99231-AI; 99232-AI; 99239; J1815